=== PATIENT | male | born 1990 | race African-American/Black ===

== ENCOUNTER 2023-02-27 23:20 | Emergency (ER) | payer OTHER ==
[2023-02-27 23:41] VITALS: O2SAT 100
--- NOTE | 2023-02-27 23:50 | ED Physician Documentation ---
History of Present Illness - Stated complaint Stated Complaint: CHEMICAL EXPOSURE- HANDS - Chief complaint Chief Complaint: Exposure - History obtained from History obtained from: Patient - Additonal information Additional information: 32-year-old man presents to the emergency department after touching Torque seal directly with both hands. active duty. He reports tingling in the hands but otherwise no issues. He washed them immediately afterwards and changed his uniform. PD PAST MEDICAL HISTORY - Past Surgical History Past Surgical History: No - Present Medications Home Medications: Ambulatory Orders Medication Instructions Recorded Confirmed No Known Home Medications 02/27/23 02/27/23 - Allergies Allergies/Adverse Reactions: Allergies Allergy/AdvReac Type Severity Reaction Status Date / Time No Known Drug Allergies Allergy Verified 02/27/23 23:37 - Social History Does the pt smoke?: No Smoking Status: Never smoker Does the pt drink ETOH?: No Does the pt have substance abuse?: No - Immunizations Immunizations are current?: Yes - POLST Patient has POLST: No PD ED PE NORMAL - Vitals Vital signs reviewed: Yes - General General: Alert and oriented X 3, No acute distress, Well developed/nourished - HEENT HEENT: Atraumatic, PERRL, EOMI, Moist mucous membranes, Pharynx benign - Neck Neck: Supple, no meningeal sign - Cardiac Cardiac: RRR - Respiratory Respiratory: No respiratory distress, Clear bilaterally - Derm Derm: Normal color, Warm and dry, No rash, Other (hands appear normal with normal capillary refill, normal radial pulses, normal sensation and movement) Results - Vitals Vitals: Vital Signs - 24 hr 02/27/23 23:15 Temperature 36.3 C L Heart Rate 73 Respiratory 16 Rate Blood Pressure 139/94 H O2 Saturation 100 Oxygen O2 Source Room air PD Medical Decision Making - ED course ED course: 32-year-old male presents for medical evaluation after Torx seal chemical exposure at work. No visible injury to hands. Poison control was called and they advised handwashing which she already did. We had him wash his hands again and change his close. He can return if he develops any symptoms but as of now there is no apparent injury from exposure. Return precautions given. Departure - Departure Disposition: Home, Self Care Clinical Impression: Chemical exposure Condition: Good Comments: You were seen in the emergency department for Medical evaluation after chemical exposure. You do not appear to have any emergent issues at this time related to the exposure. Please return to the emergency department if you have any new or worsening symptoms or other concerns. Forms: PCP List
[2023-02-28 00:42] VITALS: BP 134/74
== END 2023-02-28 00:15 | disposition home or self-care (01) ==
LOC: ED 23:20
DX: Z77.098 Contact with and (suspected) exposure to other hazardous, chiefly nonmedicinal, chemicals (principal)
CPT/HCPCS: 99283